=== PATIENT | female | born 1985 | race Asian ===

== ENCOUNTER 2016-09-06 17:27 | Emergency (ER) | payer OTHER ==
[~2016-09-06] VITALS: Ht 156.2 cm; Wt 50.3 kg
[2016-09-06 17:32] VITALS: TEMP 37.1; Ht 156.2 cm; Wt 50.3 kg
[2016-09-06] MEDS ORDERED: DIPHTHERIA/TETANUS/PERTUSSIS 0.5 ML SYR/VIAL IM. ONE (18:00)
[2016-09-06] MEDS ORDERED: RABIES IMMUNE GLOBULIN (HUMAN) 150 INTER.UNIT/ML 2 ML VIAL IM. ONE (19:00)
[2016-09-06] MEDS ORDERED: RABIES VACCINE (IMOVAX) HUMAN DIPL CELL 2.5 INTER.UNIT/ML SYR IM. ONE (19:00)
[2016-09-06] MEDS ORDERED: AMOXICIL/CLAVU 875MG HOME PACK PO ONE (19:45)
[2016-09-06] MEDS ORDERED: AMOX875T PO (19:46)
--- NOTE | 2016-09-06 19:48 | EMERGENCY ROOM VISIT NOTE ---
ED Visit Note First contact with patient: 17:28 CHIEF COMPLAINT: Dog bite HISTORY OF PRESENT ILLNESS: This 31-year-old female patient presents to the emergency department ambulatory after they sustained a dog bite to the right knee. The patient states that she [place] the [place] and someone's dog bit her in the leg. She is unsure why the dog attacked her. The patient is unsure of the animal's immunization status. The patient complains of 2/10 pain at the site of the injury. Pain is worse with movement. Tetanus status is not up to date. REVIEW OF SYSTEMS: A 6 system review of systems was completed with positives and pertinent negatives listed in the HPI. ALLERGIES: No known drug allergies MEDICATIONS: No chronic medications PMH: No significant past medical history. PHYSICAL EXAM: Vital Signs reviewed, see Nurse's notes, vital signs stable. GENERAL: This is a 31-year-old female, awake, alert, well appearing, no acute distress. Non toxic in appearance. MUSCULOSKELETAL: Examination of the right knee shows a small superficial laceration to the posterior aspect of the right knee. There is no swelling on inspection. Palpation of the knee reveals no tenderness. No significant crepitus or warmth noted. No joint space, tendon, or vascular involvement. Distal pulses intact. SKIN: No signs of infection. NEURO: No sensory or motor deficits noted over all dermatomes and myotomes tested. EMERGENCY DEPARTMENT COURSE AND DECISION MAKING: I examined the patient. The patient presented with an isolated bite wound as described as above. The nurses did contact police, who reported that the dog is owned by a homeless person and they are unable to obtain the vaccination records. I discussed benefits/risks of rabies vaccinations with the patient and she elected to proceed with the injections. ER Treatment: Department of Health paperwork completed. Tetanus booster was given. Antibiotic prophylaxis is indicated. The area was cleansed with Betadine and sterile saline and dressed with bacitracin and a bandage. Discharge instructions reviewed. The patient was discharged home in good condition. Medication reconciliation: I attest that I have personally reviewed the patient 's current medication list. Blood pressure screening: Patient was found to have normal blood pressure on screening and does not require follow-up. DIAGNOSIS: Dog bite Current/Historical Medications Scheduled Amoxicillin & Pot Clavulanate (Augmentin 875-125 mg), 1 TAB PO BID Allergies Coded Allergies: No Known Allergies (Unverified , 09/06/16) Vital Signs Date Time Temp Pulse Resp B/P (MAP) Pulse Ox O2 Delivery O2 Flow Rate FiO2 09/06/16 20:03 79 18 125/82 100 09/06/16 17:32 37.1 69 18 115/68 95 Room Air Medications Administered Medications (Trade) Dose Ordered Sig/Juancho Route Start Time Stop Time Status Last Admin Dose Admin Diphtheria/ Pertussis/Tetanus Vacc (Adacel Inj) 0.5 ml ONCE ONCE IM. 09/06/16 18:00 09/06/16 18:01 DC 09/06/16 18:36 0.5 ML Rabies Vaccine Human Diploid Cell (Imovax Rabies) 2.5 interunit ONCE ONCE IM. 09/06/16 19:00 09/06/16 19:01 DC 09/06/16 19:40 2.5 INTERUNIT Rabies Immune Globulin (Imogam Rabies Inj) 1,000 interunit ONCE ONCE IM. 09/06/16 19:00 09/06/16 19:01 DC 09/06/16 19:39 1,000 INTERUNIT Amoxicillin/ Clavulanate Potassium (Augmentin 875MG Home Pack) 1 homepack UD ONCE PO 09/06/16 19:45 09/06/16 19:46 DC 09/06/16 19:54 1 HOMEPACK Departure Information Impression Primary Impression: Dog bite Dispostion Home / Self-Care Condition GOOD Prescriptions Amoxicillin & Pot Clavulanate (Augmentin 875-125 mg) 1 Tab Tab 1 TAB PO BID for 4 Days, #8 TAB Prov: Madiha Orlando ., SHLOMO 09/06/16 Referrals No Doctor, Assigned (PCP) Patient Instructions My [facility] Additional Instructions You were prescribed Augmentin to be taken twice daily for a total of 5 days. This is an antibiotic. All antibiotics have the potential to cause diarrhea. Stop this medication and contact a medical provider if you were to develop any significant adverse side effects including: wheezing, shortness of breath, passing out, vomiting, or a diffuse rash. Always take antibiotics as directed and COMPLETE the ENTIRE course regardless of the improvement of your symptoms. Proper wound care is essential for adequate wound healing and infection prevention. You can shower and clean the wound with soap and water. Do not scour over the wound, pat dry with a towel. Do not submerse the wound (i.e. bathe or dish wash) until the wound has fully healed. You can use an antibiotic ointment with a dressing over the wound for the next 3-4 days. After this time you may leave the wound dry and open to the air. Return for any signs of infection of the wound, including worsening redness, worsening swelling, fevers or discharge from the wound. For pain control, you can use the following [id number] medicines (if >12 yo): - Regular strength (325mg/tab) Tylenol (acetaminophen) 2 tabs every 4-6 hours as needed. Do not exceed 12 tablets in a 24 hour period. Avoid taking more than 4 grams (4000 mg) of Tylenol per day. This includes any other sources of acetaminophen you may take on a regular basis. - Regular strength (200 mg/tab) Advil (ibuprofen) 1-2 tabs every 4-6 hours as needed. Do not exceed a dose of 3200 mg per day. You will need to return for your remaining rabies vaccinations. Today is day 0 and you will need to return on days 3, 7 and 14. Dates to return for the remaining injections: 09/09/16 09/13/16 09/20/16 Return here for any worsening symptoms or new/concerning symptoms. Problem Qualifiers Primary Impression: Dog bite Encounter type: initial encounter Qualified Codes: W54.0XXA - Bitten by dog , initial encounter
[2016-09-06 20:03] VITALS: BP 125/82; PULSE 79; O2SAT 100
== END 2016-09-06 20:03 | disposition home or self-care (01) ==
LOC: C.EDD 17:29
DX: S81.051A Open bite, right knee, initial encounter (principal); W54.0XXA Bitten by dog, initial encounter; Y92.241 Library as the place of occurrence of the external cause

== ENCOUNTER 2016-09-09 16:49 | Emergency (ER) | payer OTHER ==
[~2016-09-09] VITALS: Ht 154.9 cm; Wt 50.7 kg
[~2016-09-09 16:49] MED LIST: AMOX875T PO
[2016-09-09 16:55] VITALS: BP 113/74; PULSE 88; TEMP 36.4; O2SAT 97; Ht 154.9 cm; Wt 50.7 kg
[2016-09-09] MEDS ORDERED: [UNRECOGNIZED DRUG - CODE] (17:09)
[2016-09-09] MEDS ORDERED: RABIES VACCINE (IMOVAX) HUMAN DIPL CELL 2.5 INTER.UNIT/ML SYR IM. ONE (17:30)
--- NOTE | 2016-09-10 22:47 | EMERGENCY ROOM VISIT NOTE ---
ED Visit Note First contact with patient: 16:58 CHIEF COMPLAINT: Rabies vaccination. HISTORY OF PRESENT ILLNESS: Ms. Can is a 31-year-old female who ambulates into the ED requesting her second rabies immunization vaccination. She reports she was exposed dog bite injury and the animal's rabies immunization was questioned. She received rabies immunoglobulin and rabies immunization vaccinations and reports she tolerated all these injections well and had no adverse or allergic reactions. Additionally she reports she is feeling well today and denies fevers, chills, sweats, skin eruptions, skin color changes, headache, upper respiratory tract symptoms, joint pains, decreased appetite, nausea/vomiting. PHYSICAL EXAM: Vital Signs: Date Time Temp Pulse Resp B/P (MAP) Pulse Ox O2 Delivery O2 Flow Rate FiO2 09/09/16 16:55 36.4 88 16 113/74 97 Room Air General: 31-year-old female in no acute distress, nontoxic-appearing, afebrile and hemodynamically stable. Neurological: Awake, alert and oriented 3. Answering questions appropriately and following commands. Skin: Warm, dry and pink. Posterior Right Knee: Single wound was noted and look like it was healing well. There was no signs of infection including increasing redness/swelling, puslike drainage or exudates streaking. ED COURSE: Patient is assessed as noted above. Patient was given 2.5 interunites of rabies vaccination IM. Patient was observed and had no reactions to her/is immunizations. Patient was educated about today's findings and instructed on her treatment plan ; she verbalizes understanding and agreement with this plan. DISPOSITION: Patient discharged home in stable condition accompanied by female friend. CLINICAL IMPRESSION: Rabies vaccination. Well healing dog bite wound. PLAN: Continue to monitor herself for any adverse reactions to your immunizations. Continue to follow your current schedule for your additional immunizations. Return to ED for evaluation for any adverse or allergic reactions to the immunization series or any new/concerning symptoms.
== END 2016-09-09 17:38 | disposition home or self-care (01) ==
LOC: C.EDB 16:50 → C.EDD 17:38
DX: Z23 Encounter for immunization (principal); Z20.3 Contact with and (suspected) exposure to rabies; S81.051D Open bite, right knee, subsequent encounter; W54.0XXD Bitten by dog, subsequent encounter

== ENCOUNTER 2016-09-13 19:38 | Emergency (ER) | payer OTHER ==
[~2016-09-13] VITALS: Ht 154.9 cm; Wt 50.4 kg
[~2016-09-13 19:38] MED LIST changes: -AMOX875T PO; +[UNRECOGNIZED DRUG - CODE]
[2016-09-13 19:41] VITALS: Ht 154.9 cm; Wt 50.4 kg
--- NOTE | 2016-09-13 19:56 | EMERGENCY ROOM VISIT NOTE ---
History First contact with patient: 19:45 Chief Complaint: RABIES VACCINE REPEAT VISIT Stated Complaint: 3RD RABIES INJECTION History of Present Illness The patient is a 31 year old female who presents to the Emergency Room for her third Imovax immunization. The patient reports that she did develop a 24-hour headache after her initial set of injections. She did not notice any reaction at the injection sites or fevers. She reports that the headache has not returned. She also reports that the wound on the back of her right knee is also healing well. She did complete the antibiotics as previously prescribed. Review of Systems 6 system review was performed and was negative except for pertinent positives and negatives as indicated in history of present illness Past Medical/Surgical History Medical Problems: (1) No significant past medical history Surgical Problems: (1) No history of previous surgery Family History Unremarkable Social History Smoking Status: Never Smoker Alcohol Use: none Marital Status: single Occupation Status: [employer] student Current/Historical Medications Scheduled Rabies Vaccine, Pcec (Rabavert), UD Physical Exam Vital Signs Date Time Temp Pulse Resp B/P (MAP) Pulse Ox O2 Delivery O2 Flow Rate FiO2 09/13/16 19:41 36.8 79 18 113/77 98 Room Air Physical Exam CONSTITUTIONAL: Healthy and well nourished. Alert and oriented X 3 with positive affect. MUSCULOSKELETAL: Examination shows a healing wound in the right knee popliteal space. There is no erythema, induration or ecchymosis. INTEGUMENTARY: No rash or other significant dermatologic conditions noted. NEUROLOGIC: No focal neurologic deficits noted. Medical Decision & Procedures ED Course Patient history and physical exam were performed. Nurse's notes were reviewed. The patient was administered Imovax without adverse reaction. The patient will return in one week for her final Imovax injection. Medical Decision Medication Reconcilliation Current Medication List: was personally reviewed by ak Blood Pressure Screening Patient's blood pressure: Normal blood pressure Impression Primary Impression: Need for prophylactic vaccination against rabies Additional Impression: Dog bite of right knee Departure Information Dispostion Home / Self-Care Forms HOME CARE DOCUMENTATION FORM, IMPORTANT VISIT INFORMATION Patient Instructions My [facility] Additional Instructions Return on Wednesday 09/20 for your final Imovax immunization Problem Qualifiers Additional Impression: Dog bite of right knee Encounter type: subsequent encounter Qualified Codes: S81.051D - Open bite, right knee, subsequent encounter; W54.0XXD - Bitten by dog, subsequent encounter
[2016-09-13] MEDS ORDERED: RABIES VACCINE (IMOVAX) HUMAN DIPL CELL 2.5 INTER.UNIT/ML SYR IM. ONE (20:00)
[2016-09-13 20:01] VITALS: BP 113/77; PULSE 79; TEMP 36.8; O2SAT 98
== END 2016-09-13 20:02 | disposition home or self-care (01) ==
LOC: C.EDB 19:39 → C.EDD 20:02
DX: Z23 Encounter for immunization (principal); Z20.3 Contact with and (suspected) exposure to rabies; S81.051D Open bite, right knee, subsequent encounter; W54.0XXD Bitten by dog, subsequent encounter

== ENCOUNTER 2016-09-20 17:53 | Emergency (ER) | payer OTHER ==
[~2016-09-20] VITALS: Ht 154.9 cm; Wt 49.7 kg
[2016-09-20 18:06] VITALS: Ht 154.9 cm; Wt 49.7 kg
[2016-09-20] MEDS ORDERED: RABIES VACCINE (IMOVAX) HUMAN DIPL CELL 2.5 INTER.UNIT/ML SYR IM. ONE (18:15)
--- NOTE | 2016-09-20 18:21 | EMERGENCY ROOM VISIT NOTE ---
ED Visit Note First contact with patient: 18:09 Chief Complaint: Rabies Return Visit History of Present Illness: This patient is a 31-year-old female who presents to the Emergency Department via private vehicle for final Rabies Vaccination Injections. The patient reports that they had NO reaction to previous IMOVAX injection. Patient denies the development of any fevers, chills, sweats, or URI symptoms. Medications: Unchanged from previous visit. Allergies: NONE PMH: Unchanged from previous visit. SHx: Pt. lives locally currently ROS: All pertinent positive and negative review of systems are appropriately documented in the History of Present Illness. Physical Exam: VITAL SIGNS - Vital signs and Nursing Notes were reviewed. GENERAL - 31 year old female, well-developed, well-nourished, and in no acute distress. SKIN - Without rashes or lesions. NEURO - Patient is A&Ox3 and communicates appropriately with the provider. ED Course: Previous ED visit note was reviewed by myself prior to patient evaluation. Patient reports no reaction to the previous injection(s). Patient received 2.5IU of IMOVAX intramuscularly. Patient was observed in the Emergency Department for greater than 20 minutes prior to discharge without signs of reaction. Patient was educated on worrisome symptoms for return visit to the Emergency Department. Patient discharged to home with the intent for follow-up in the Emergency Department as scheduled for the remainder of their injections. She was given documentation regarding her immunization. Current/Historical Medications No Active Prescriptions or Reported Meds Allergies Coded Allergies: No Known Allergies (Unverified , 09/20/16) Vital Signs Date Time Temp Pulse Resp B/P (MAP) Pulse Ox O2 Delivery O2 Flow Rate FiO2 09/20/16 18:06 36.6 61 18 119/80 100 Room Air Medications Administered Medications (Trade) Dose Ordered Sig/Juancho Route Start Time Stop Time Status Last Admin Dose Admin Rabies Vaccine Human Diploid Cell (Imovax Rabies) 2.5 interunit ONCE ONCE IM. 09/20/16 18:15 09/20/16 18:16 DC 09/20/16 18:14 2.5 INTERUNIT Departure Information Impression Primary Impression: Rabies, need for prophylactic vaccination against Dispostion Home / Self-Care Condition GOOD Prescriptions No Active Prescriptions or Reported Meds Referrals No Doctor, Assigned (PCP) Patient Instructions My [facility] Additional Instructions Discharge Instructions: You were seen in the Emergency Department today for your FINAL Rabies Prophylaxis Injection. Please refer to the attached handout regarding the medication you received, the amount you received as well as on 1 day for verification of your immunization against rabies. Please return with any new/concerning symptoms.
[2016-09-20 18:36] VITALS: BP 119/80; PULSE 61; TEMP 36.6; O2SAT 100
== END 2016-09-20 18:36 | disposition home or self-care (01) ==
LOC: C.EDB 17:55 → C.EDD 18:36
DX: Z23 Encounter for immunization (principal); Z20.3 Contact with and (suspected) exposure to rabies